=== PATIENT | female | born 1995 | race Caucasian/White ===

== ENCOUNTER 2022-03-19 14:08 | Emergency (ER) | payer OTHER, MEDICAID, SELFPAY ==
[2022-03-19 15:32] VITALS: BP 136/75; PULSE 80; RESP 18; TEMP 36.3; O2SAT 98
--- NOTE | 2022-03-19 20:00 | PC.NURSE ---
Called twice but not in the WR @ this time.
== END 2022-03-19 20:21 | disposition left against medical advice (07) ==
LOC: HO.ED 20:19
PROVIDERS: Emergency Provider Emergency Medicine
DX: M54.50 Low back pain, unspecified (principal)